=== PATIENT | male | born 1970 | race Hispanic/Latino ===

== ENCOUNTER 2024-06-04 08:44 | Inpatient (IN) | payer SELFPAY ==
[2024-06-04] VITALS (33 sets, daily range): BP systolic 109–124; BP diastolic 57–76; PULSE 76–96; RESP 18–33; TEMP 98.1–99; O2SAT 93–98
[~2024-06-04] VITALS: Ht 167.6 cm; Wt 84.1 kg
[2024-06-04 09:46] LABS: INR 1.3; PROTHROMBIN TIME 17.1 seconds (11.9-14.5)
[2024-06-04 09:47] LABS: PARTIAL THROMBOPLASTIN TIME 31.9 seconds (23.8-35.5)
[2024-06-04 09:55] LABS: ALBUMIN 3.2 g/dL (3.5-5.0); ALBUMIN/GLOBULIN RATIO 1.2 (0.8-2.0); ANION GAP 13.7 mmol/L (8-16); BILIRUBIN,TOTAL 0.8 mg/dL (0.2-1.2); CALCIUM 8.1 mg/dL (8.4-10.2); CREATININE, SERUM 0.79 mg/dL (0.72-1.25); MAGNESIUM 2.4 MG/DL (1.3-2.1); POTASSIUM 3.7 mmol/L (3.5-5.1); TOTAL PROTEIN 5.9 g/dL (6.5-8.1)
[2024-06-04 10:02] LABS: TROPONIN I 0.011 ng/mL (0-0.300)
[2024-06-04] MEDS ORDERED: IOPAMIDOL 370 MG/ML 100 ML INFUS..BTL INJ ONE (10:05)
[2024-06-04 10:14] LABS: INFLUENZAE A&B ANTIGEN (RAPID) NEGATIVE (NEGATIVE); RESPIRATORY SYNC. VIRUS NEGATIVE (NEGATIVE)
[2024-06-04 10:16] LABS: B-TYPE NATRIURETIC PEPTIDE2 492.2 pg/mL (0-100)
[2024-06-04 10:36] LABS: BASOPHILS % 0.2 % (0.0-1.0); EOSINOPHILS % 0.3 % (0.0-6.0); LYMPHOCYTES # (AUTO) 1.1 (1.0-3.2); LYMPHOCYTES % 18.8 % (18.0-39.1); MEAN CORPUSCULAR HEMOGLOBIN 15.9 pg (28-32); MEAN CORPUSCULAR HGB CONC 23.4 g/dL (31-35); MEAN CORPUSCULAR VOLUME 67.7 fL (81-99); MONOCYTES # (AUTO) 0.7 (0.2-0.8); MONOCYTES % 12.2 % (4.4-11.3); NEUTROPHILS % 67.3 % (38.7-80.0); PLATELET COUNT 107 x10e3/uL (140-360); RED BLOOD COUNT 1.89 x10e6/uL (4.3-5.7); RED CELL DISTRIBUTION WIDTH 20.7 % (11.7-14.4); WHITE BLOOD COUNT 5.91 x10e3/uL (4.8-10.8)
[2024-06-04 10:39] LABS: HEMATOCRIT 12.8 % (38.2-49.6)
[2024-06-04 11:39] LABS: HYPOCHROMASIA MARKED; MICROCYTOSIS MODERATE; PLATELET ESTIMATE SLIGHTLY DECREASED; POIKILOCYTOSIS SLIGHT
[2024-06-04 11:40] LABS: PLATELET MORPHOLOGY COMMENT NORMAL
[2024-06-04] MEDS ORDERED: ONDANSETRON HCL INJ 2MG/ML 2ML 2 MG/ML VIAL IV PRN (12:15)
[2024-06-04] MEDS ORDERED: SODIUM CHLORIDE 0.9% 250ML 250 ML ONE (12:20)
[2024-06-04 13:18] LABS: BODY FLUID APPEARANCE CLEAR; BODY FLUID COLOR YELLOW; BODY FLUID TYPE PLEURAL; RBC,BODY FLUID 0 cells/uL; WBC,BODY FLUID 2 cells/uL
[2024-06-04] MEDS ORDERED: ETOMIDATE 2 MG/ML 10 ML INJ IV ONE (13:32)
[2024-06-04] MEDS ORDERED: LIDOCAINE HCL 2% LOCAL INJ 5 ML SDV VIAL INJ ONE (13:32)
[2024-06-04] MEDS ORDERED: PROPOFOL IV EMULSION 10 MG/ML 20 ML VIAL ONE (13:32)
[2024-06-04 22:25] LABS: BASOPHILS % 0.3 % (0.0-1.0); EOSINOPHILS % 0.5 % (0.0-6.0); LYMPHOCYTES # (AUTO) 0.8 (1.0-3.2); LYMPHOCYTES % 21.6 % (18.0-39.1); MEAN CORPUSCULAR HEMOGLOBIN 22.4 pg (28-32); MEAN CORPUSCULAR HGB CONC 29.2 g/dL (31-35); MEAN CORPUSCULAR VOLUME 76.8 fL (81-99); MONOCYTES # (AUTO) 0.4 (0.2-0.8); MONOCYTES % 10.8 % (4.4-11.3); NEUTROPHILS # (AUTO) 2.5 (2.1-6.9); NEUTROPHILS % 65.7 % (38.7-80.0); PLATELET COUNT 65 x10e3/uL (140-360); RED BLOOD COUNT 2.63 x10e6/uL (4.3-5.7); RED CELL DISTRIBUTION WIDTH 23.8 % (11.7-14.4)
[2024-06-04 22:27] LABS: HEMATOCRIT 20.2 % (38.2-49.6); HEMOGLOBIN 5.9 g/dL (14.0-18.0)
[2024-06-04 22:57] LABS: TROPONIN I 0.017 ng/mL (0-0.300)
[2024-06-04] MEDS ORDERED: PHYTONADIONE 10 MG/ML ONE (23:24)
[2024-06-04] MEDS: OCTREOTIDE ACETATE 0.05 MG/ML AMP IV ONE (23:28)
[2024-06-04] MEDS: SODIUM CHLORIDE 0.9% IV ONE (23:48)
[2024-06-04] MEDS: PHYTONADIONE IV ONE (23:48)
[2024-06-04] MEDS: SODIUM CHLORIDE 0.9% 250ML 250 ML IV ONE (23:49)
[2024-06-04] MEDS: OCTREOTIDE ACETATE 500 MCG in SODIUM CHLORIDE 0.9% 250ML 249 ML IV SCH (23:50)
[2024-06-05] VITALS (27 sets, daily range): BP systolic 94–119; BP diastolic 46–71; PULSE 63–81; RESP 16–35; TEMP 98–99.8; O2SAT 91–100
[2024-06-05] MEDS: SODIUM CHLORIDE 0.9% 100 ML ONE (02:03)
[2024-06-05] MEDS: FUROSEMIDE INJ 10 MG/ML 4 ML VIAL IV ONE (03:19)
[2024-06-05 04:03] LABS: BILIRUBIN,URINE 1+ (NEGATIVE); CLARITY,URINE CLEAR (CLEAR); COLOR,URINE ORANGE (YELLOW); GLUCOSE, URINE NEGATIVE (NEGATIVE); KETONES,URINE TRACE (NEGATIVE); LEUKOCYTE ESTERASE ,URINE NEGATIVE (NEGATIVE); NITRITE,URINE NEGATIVE (NEGATIVE); PH,URINE 7 (5 - 7); PROTEIN,URINE DIPSTICK TRACE (NEGATIVE); URINE UROBILINOGEN 1 mg/dL (0.2 - 1)
[2024-06-05 04:04] LABS: % IRON SATURATION 4 % (15-50); IRON 20 ug/dL (65-175); TOTAL IRON BINDING CAPACITY 473 ug/dL (261-478); TRANSFERRIN 338 mg/dL (174-364)
[2024-06-05 04:20] LABS: BACTERIA,URINE MANY /HPF; EPITHELIAL CELLS,URINE FEW /LPF; RBC,URINE 0-5 /HPF (0-5)
[2024-06-05] MEDS ORDERED: PHYTONADIONE 10MG/ML INJ 20 MG in SODIUM CHLORIDE 0.9% 100 ML IV ONE (08:00)
[2024-06-05] MEDS: Morphine 2mg Syringe 2 MG/ML SYR IV PRN (08:44)
[2024-06-05 09:17] LABS: BASOPHILS % 0.5 % (0.0-1.0); EOSINOPHILS % 0.5 % (0.0-6.0); HEMOGLOBIN 8.3 g/dL (14.0-18.0); LYMPHOCYTES # (AUTO) 0.5 (1.0-3.2); LYMPHOCYTES % 12.6 % (18.0-39.1); MEAN CORPUSCULAR HGB CONC 29.6 g/dL (31-35); MEAN CORPUSCULAR VOLUME 80.9 fL (81-99); MONOCYTES # (AUTO) 0.3 (0.2-0.8); MONOCYTES % 9.3 % (4.4-11.3); NEUTROPHILS # (AUTO) 2.8 (2.1-6.9); NEUTROPHILS % 75.5 % (38.7-80.0); PLATELET COUNT 62 x10e3/uL (140-360); RED BLOOD COUNT 3.46 x10e6/uL (4.3-5.7); RED CELL DISTRIBUTION WIDTH 22.7 % (11.7-14.4); WHITE BLOOD COUNT 3.65 x10e3/uL (4.8-10.8)
[2024-06-05 09:30] LABS: INR 1.32; PROTHROMBIN TIME 17.3 seconds (11.9-14.5)
[2024-06-05 09:31] LABS: PARTIAL THROMBOPLASTIN TIME 31.2 seconds (23.8-35.5)
[2024-06-05 09:45] LABS: ALBUMIN/GLOBULIN RATIO 1.1 (0.8-2.0); ANION GAP 13.2 mmol/L (8-16); BILIRUBIN,TOTAL 2.3 mg/dL (0.2-1.2); CALCIUM 7.5 mg/dL (8.4-10.2); CREATININE, SERUM 0.88 mg/dL (0.72-1.25); POTASSIUM 4.2 mmol/L (3.5-5.1); TOTAL PROTEIN 5.8 g/dL (6.5-8.1)
[2024-06-05 10:10] LABS: TROPONIN I 0.014 ng/mL (0-0.300)
[2024-06-05] MEDS ORDERED: NICOTINE 14 MG/EA PATCH TOP PRN (16:00)
[2024-06-05 21:58] LABS: BASOPHILS % 0.5 % (0.0-1.0); EOSINOPHILS # (AUTO) 0.1 (0.0-0.4); EOSINOPHILS % 0.8 % (0.0-6.0); HEMATOCRIT 28.4 % (38.2-49.6); HEMOGLOBIN 8.5 g/dL (14.0-18.0); LYMPHOCYTES % 14.4 % (18.0-39.1); MEAN CORPUSCULAR HEMOGLOBIN 24.1 pg (28-32); MEAN CORPUSCULAR HGB CONC 29.9 g/dL (31-35); MEAN CORPUSCULAR VOLUME 80.5 fL (81-99); MONOCYTES # (AUTO) 0.6 (0.2-0.8); MONOCYTES % 9.7 % (4.4-11.3); NEUTROPHILS # (AUTO) 4.9 (2.1-6.9); NEUTROPHILS % 73.5 % (38.7-80.0); PLATELET COUNT 64 x10e3/uL (140-360); RED BLOOD COUNT 3.53 x10e6/uL (4.3-5.7)
[2024-06-05 22:02] LABS: WHITE BLOOD COUNT 6.61 x10e3/uL (4.8-10.8)
[2024-06-06] VITALS (26 sets, daily range): BP systolic 94–125; BP diastolic 46–98; PULSE 57–72; RESP 16–30; TEMP 98–99; O2SAT 94–100
[2024-06-06 05:41] LABS: HEPATITIS B SURFACE AG (P) Nonreactive; HEPATITIS C ANTIBODY Nonreactive
[2024-06-06 07:02] LABS: EOSINOPHILS # (AUTO) 0.1 (0.0-0.4); EOSINOPHILS % 2.3 % (0.0-6.0); HEMATOCRIT 26.6 % (38.2-49.6); LYMPHOCYTES # (AUTO) 0.7 (1.0-3.2); LYMPHOCYTES % 17.4 % (18.0-39.1); MEAN CORPUSCULAR HEMOGLOBIN 24.3 pg (28-32); MEAN CORPUSCULAR HGB CONC 30.1 g/dL (31-35); MEAN CORPUSCULAR VOLUME 80.9 fL (81-99); MONOCYTES # (AUTO) 0.4 (0.2-0.8); MONOCYTES % 10.2 % (4.4-11.3); NEUTROPHILS # (AUTO) 2.6 (2.1-6.9); NEUTROPHILS % 67.6 % (38.7-80.0); PLATELET COUNT 50 x10e3/uL (140-360); RED BLOOD COUNT 3.29 x10e6/uL (4.3-5.7); RED CELL DISTRIBUTION WIDTH 23.1 % (11.7-14.4); WHITE BLOOD COUNT 3.91 x10e3/uL (4.8-10.8)
[2024-06-06 07:40] LABS: TROPONIN I 0.014 ng/mL (0-0.300)
[2024-06-06] MEDS ORDERED: IRON SUCROSE 100 MG in SODIUM CHLORIDE 0.9% 100 ML IV SCH (09:00)
[2024-06-06] MEDS: HYDROCODONE/APAP 7.5MG-325MG 1 EA TAB PO PRN (09:44)
[2024-06-06] MEDS: SODIUM FERRIC GLUCONATE COMPLX 125 MG in SODIUM CHLORIDE 0.9% 100 ML IV SCH (14:19)
[2024-06-06 15:28] LABS: BODY FLUID APPEARANCE SL.CLOUDY; BODY FLUID COLOR YELLOW; BODY FLUID TYPE PLEURAL; RBC,BODY FLUID < 2000 cells/uL; WBC,BODY FLUID 163 cells/uL
[2024-06-06 16:32] LABS: LYMPHOCYTES,BODY FLUID 34 %; MONO/MACROPHG,BODY FLUID 42 %; NEUTROPHILS,BODY FLUID 24 %; TOTAL CELLS COUNTED (DIFF) 100
[2024-06-07] VITALS (21 sets, daily range): BP systolic 97–125; BP diastolic 54–85; PULSE 55–73; RESP 12–25; TEMP 98–98.7; O2SAT 92–100
[2024-06-07 07:00] LABS: BASOPHILS % 0.5 % (0.0-1.0); EOSINOPHILS # (AUTO) 0.1 (0.0-0.4); EOSINOPHILS % 3.1 % (0.0-6.0); HEMATOCRIT 27.1 % (38.2-49.6); LYMPHOCYTES # (AUTO) 0.7 (1.0-3.2); LYMPHOCYTES % 18.8 % (18.0-39.1); MEAN CORPUSCULAR HEMOGLOBIN 24.3 pg (28-32); MEAN CORPUSCULAR HGB CONC 29.5 g/dL (31-35); MEAN CORPUSCULAR VOLUME 82.4 fL (81-99); MONOCYTES # (AUTO) 0.4 (0.2-0.8); MONOCYTES % 9.2 % (4.4-11.3); NEUTROPHILS # (AUTO) 2.6 (2.1-6.9); NEUTROPHILS % 67.6 % (38.7-80.0); RED BLOOD COUNT 3.29 x10e6/uL (4.3-5.7); RED CELL DISTRIBUTION WIDTH 23.7 % (11.7-14.4); WHITE BLOOD COUNT 3.82 x10e3/uL (4.8-10.8)
[2024-06-07 07:08] LABS: PLATELET COUNT 45 x10e3/uL (140-360)
[2024-06-07] MEDS: SODIUM CHLORIDE 0.9% 250ML 250 ML ONE (15:34)
[2024-06-07 18:34] LABS: GLUCOSE,BODY FLUID 124 mg/dL
[2024-06-07] MEDS: LIDOCAINE HCL 5% OINMENT 35.44 GM TUBE TP SCH (19:10)
[2024-06-07] MEDS: DIPHENHYDRAMINE HCL 25 MG CAP PO PRN (19:10)
[2024-06-08] VITALS: BP 107/63; PULSE 57; RESP 12; O2SAT 94
[2024-06-08 06:19] LABS: BASOPHILS % 0.6 % (0.0-1.0); EOSINOPHILS # (AUTO) 0.1 (0.0-0.4); EOSINOPHILS % 3.8 % (0.0-6.0); HEMATOCRIT 29.9 % (38.2-49.6); HEMOGLOBIN 8.6 g/dL (14.0-18.0); LYMPHOCYTES # (AUTO) 0.6 (1.0-3.2); LYMPHOCYTES % 18.9 % (18.0-39.1); MEAN CORPUSCULAR HEMOGLOBIN 24.4 pg (28-32); MEAN CORPUSCULAR HGB CONC 28.8 g/dL (31-35); MEAN CORPUSCULAR VOLUME 84.7 fL (81-99); MONOCYTES # (AUTO) 0.3 (0.2-0.8); MONOCYTES % 9.1 % (4.4-11.3); NEUTROPHILS # (AUTO) 2.3 (2.1-6.9); RED BLOOD COUNT 3.53 x10e6/uL (4.3-5.7); RED CELL DISTRIBUTION WIDTH 25.3 % (11.7-14.4); WHITE BLOOD COUNT 3.39 x10e3/uL (4.8-10.8)
[2024-06-08 06:34] LABS: PLATELET COUNT 54 x10e3/uL (140-360)
[2024-06-08 08:00] VITALS: BP 111/70; PULSE 53; RESP 13; TEMP 98; O2SAT 98
[2024-06-08] MEDS: SODIUM CHLORIDE 0.9% 250ML 250 ML ONE (08:35)
[2024-06-08 09:00] VITALS: BP 111/70; PULSE 63; RESP 24; TEMP 98; O2SAT 98
[2024-06-08 09:27] LABS: ANISOCYTOSIS MODERATE; HYPOCHROMASIA MODERATE; OVALOCYTES FEW; PLATELET ESTIMATE MARKEDLY DECREASED; PLATELET MORPHOLOGY COMMENT NORMAL; POLYCHROMASIA FEW; RBC MORPHOLOGY COMMENT ABNORMAL
[2024-06-08 10:00] VITALS: BP 112/64; PULSE 63; RESP 18; O2SAT 99
[2024-06-08] MEDS ORDERED: BENZOCAINE/TETRACAINE/BUTAMBEN AERO SPRAY 56 GM CAN ONE (16:09)
[2024-06-08 20:00] VITALS: BP 140/75; PULSE 62; RESP 20; TEMP 98; O2SAT 97
[2024-06-08 21:00] VITALS: BP 140/75; PULSE 62; RESP 20; TEMP 98; O2SAT 97
[2024-06-09] VITALS (8 sets, daily range): BP systolic 129–140; BP diastolic 70–82; PULSE 61–69; RESP 18–20; TEMP 98–99.1; O2SAT 93–98
[2024-06-10] VITALS (7 sets, daily range): BP systolic 122–137; BP diastolic 71–78; PULSE 69–82; RESP 17–18; TEMP 97.6–99.6; O2SAT 92–100
[2024-06-10 06:47] LABS: BASOPHILS % 0.7 % (0.0-1.0); EOSINOPHILS # (AUTO) 0.1 (0.0-0.4); EOSINOPHILS % 4.5 % (0.0-6.0); HEMATOCRIT 29.5 % (38.2-49.6); HEMOGLOBIN 8.6 g/dL (14.0-18.0); LYMPHOCYTES # (AUTO) 0.5 (1.0-3.2); LYMPHOCYTES % 18.8 % (18.0-39.1); MEAN CORPUSCULAR HGB CONC 29.2 g/dL (31-35); MEAN CORPUSCULAR VOLUME 85.8 fL (81-99); MONOCYTES # (AUTO) 0.3 (0.2-0.8); MONOCYTES % 9.7 % (4.4-11.3); NEUTROPHILS # (AUTO) 1.9 (2.1-6.9); NEUTROPHILS % 65.6 % (38.7-80.0); PLATELET COUNT 62 x10e3/uL (140-360); RED BLOOD COUNT 3.44 x10e6/uL (4.3-5.7); RED CELL DISTRIBUTION WIDTH 28.2 % (11.7-14.4); WHITE BLOOD COUNT 2.88 x10e3/uL (4.8-10.8)
[2024-06-10] MEDS: FUROSEMIDE 40 MG TAB PO SCH (09:13)
[2024-06-10] MEDS: SPIRONOLACTONE 25 MG TAB PO SCH (09:13)
[2024-06-10 09:46] LABS: BAND NEUTROPHILS % (MANUAL) 1 %; BASOPHILS % (MANUAL) 3 % (0-1.5); LYMPHOCYTES % (MANUAL) 11 % (19-48); MONOCYTES % (MANUAL) 7 % (3.4-9.0); NEUTROPHILS % (MANUAL) 78 % (40-74)
[2024-06-10 09:47] LABS: HYPOCHROMASIA MODERATE; PLATELET ESTIMATE MARKEDLY DECREASED; RBC MORPHOLOGY COMMENT ABNORMAL
[2024-06-10 09:48] LABS: ANISOCYTOSIS MODERATE; OVALOCYTES FEW
[2024-06-10 09:50] LABS: MICROCYTOSIS MODERATE
[2024-06-10] MEDS ORDERED: ENOXAPARIN INJ 80 MG/0.8 ML SYR SC STA (16:59)
[2024-06-10 17:45] LABS: INR 1.74; PROTHROMBIN TIME 21.2 seconds (11.9-14.5)
[2024-06-10] MEDS: ENOXAPARIN INJ 80 MG/0.8 ML SYR SC SCH (20:00)
[2024-06-11] VITALS: BP 127/82; PULSE 59; RESP 18; TEMP 98.4; O2SAT 95
[2024-06-11 04:00] VITALS: BP 129/81; PULSE 63; RESP 18; TEMP 97.6; O2SAT 96
[2024-06-11 07:54] VITALS: BP 125/75; PULSE 58; RESP 18; TEMP 98.1; O2SAT 96
[2024-06-11] MEDS: SPIRONOLACTONE 25 MG TAB PO SCH (08:10)
[2024-06-11 08:45] VITALS: BP 125/75; PULSE 58; RESP 18; TEMP 98.1; O2SAT 96
[2024-06-11 09:04] LABS: BASOPHILS % 0.7 % (0.0-1.0); EOSINOPHILS # (AUTO) 0.1 (0.0-0.4); EOSINOPHILS % 3.1 % (0.0-6.0); HEMATOCRIT 33.1 % (38.2-49.6); HEMOGLOBIN 9.4 g/dL (14.0-18.0); LYMPHOCYTES # (AUTO) 0.8 (1.0-3.2); LYMPHOCYTES % 26.4 % (18.0-39.1); MEAN CORPUSCULAR HEMOGLOBIN 25.1 pg (28-32); MEAN CORPUSCULAR HGB CONC 28.4 g/dL (31-35); MEAN CORPUSCULAR VOLUME 88.5 fL (81-99); MONOCYTES # (AUTO) 0.2 (0.2-0.8); MONOCYTES % 8.3 % (4.4-11.3); NEUTROPHILS # (AUTO) 1.8 (2.1-6.9); NEUTROPHILS % 60.8 % (38.7-80.0); PLATELET COUNT 64 x10e3/uL (140-360); RED BLOOD COUNT 3.74 x10e6/uL (4.3-5.7); RED CELL DISTRIBUTION WIDTH 29.6 % (11.7-14.4); WHITE BLOOD COUNT 2.88 x10e3/uL (4.8-10.8)
[2024-06-11 09:12] LABS: INR 1.42; PROTHROMBIN TIME 18.1 seconds (11.9-14.5)
[2024-06-11 10:59] VITALS: BP 116/70; PULSE 64; RESP 18; TEMP 98.1; O2SAT 97
[2024-06-11 12:17] LABS: PLATELET ESTIMATE SLIGHTLY DECREASED; PLATELET MORPHOLOGY COMMENT NORMAL; RBC MORPHOLOGY COMMENT NORMAL
[2024-06-11 12:18] LABS: ANISOCYTOSIS SLIGHT; HYPOCHROMASIA SLIG; POLYCHROMASIA SL
[2024-06-11] MEDS ORDERED: FUROSEMIDE40 MG PO (14:44)
[2024-06-11] MEDS ORDERED: ALDACTONE25 MG PO (14:44)
[2024-06-11] MEDS ORDERED: NICODERM CQ1 EAC1 TOP (14:44)
[2024-06-11] MEDS ORDERED: PANTOPRAZOLE SO40 MG PO (14:44)
[2024-06-11] MEDS ORDERED: ELIQUIS5 MG PO (14:44)
== END 2024-06-11 18:21 | disposition home or self-care (01) | DRG 377 ==
LOC: ER 08:53 → ERHOLD 11:21 → ICU 13:54 → MED/SURG2 06-08 17:51
PROVIDERS: ADMIT Internal Medicine; ATTEND Internal Medicine
PROC: 0W993ZZ Drainage of Right Pleural Cavity, Percutaneous Approach (ICD-10-PCS; 2024-06-04)
PROC: 30233N1 Transfusion of Nonautologous Red Blood Cells into Peripheral Vein, Percutaneous Approach (ICD-10-PCS; 2024-06-04)
PROC: 02HV33Z Insertion of Infusion Device into Superior Vena Cava, Percutaneous Approach (ICD-10-PCS; 2024-06-04)
PROC: 0DB68ZX Excision of Stomach, Via Natural or Artificial Opening Endoscopic, Diagnostic (ICD-10-PCS; 2024-06-08)
PROC: 0DB78ZX Excision of Stomach, Pylorus, Via Natural or Artificial Opening Endoscopic, Diagnostic (ICD-10-PCS; 2024-06-08)
PROC: 30233R1 Transfusion of Nonautologous Platelets into Peripheral Vein, Percutaneous Approach (ICD-10-PCS; 2024-06-08)
PROC: 06L38CZ Occlusion of Esophageal Vein with Extraluminal Device, Via Natural or Artificial Opening Endoscopic (ICD-10-PCS; principal; 2024-06-08 16:39)
DX: K29.71 Gastritis, unspecified, with bleeding (principal); I50.31 Acute diastolic (congestive) heart failure; J94.8 Other specified pleural conditions; I82.890 Acute embolism and thrombosis of other specified veins; D68.9 Coagulation defect, unspecified; D62 Acute posthemorrhagic anemia; J90 Pleural effusion, not elsewhere classified; K76.6 Portal hypertension; I85.10 Secondary esophageal varices without bleeding; K70.31 Alcoholic cirrhosis of liver with ascites; K31.89 Other diseases of stomach and duodenum; D69.59 Other secondary thrombocytopenia; Z11.52 Encounter for screening for COVID-19; R16.1 Splenomegaly, not elsewhere classified; B02.9 Zoster without complications; F17.210 Nicotine dependence, cigarettes, uncomplicated
CPT/HCPCS: 32555; 36415; 36569; 43239; 71045; 71260; 74177; 74470; 80053; 81001; 82040; 82550; 82607; 82746; 82945; 83540; 83605; 83615; 83735; 83880; 84466; 84478; 84484; 85025; 85045; 85610; 85730; 86850; 86900; 86920; 87040; 87070; 87086; 87205; 87400; 87420; 88112; 88305; 88342; 89051; 93005; 93306; 94799; 99252; C1729; J0696; J1650; J1940; J2001; J2270; J2353; J2354; J2470; J2916; J3430; J7050; P9016; P9034; Q9967; U0002